=== PATIENT | male | born 1970 | race Caucasian/White ===

== ENCOUNTER 2020-04-29 11:45 | Outpatient (REF) | payer BC, SELFPAY | END 2020-04-29 11:46 | disposition home or self-care (01) | LOC: HO.LAB 11:45 | PROVIDERS: Visit Provider Internal Medicine | DX: Z20.828 Contact with and (suspected) exposure to other viral communicable diseases (principal) | CPT/HCPCS: 87635 ==

== ENCOUNTER 2020-05-28 09:09 | Outpatient (REF) | payer BC, SELFPAY ==
[2020-05-28 10:10] LABS: MANUAL DIFF FLAG NO
[2020-05-28 10:13] LABS: Basophils Percent Auto 0.1 % (0-2); Eosinophils Absolute Auto 0.1 X10*3/uL (0.0-0.4); Eosinophils Percent Auto 1.6 % (0-4); Hematocrit 44.8 % (42-52); Hemoglobin 14.3 g/dl (14.0-18.0); Imm Gran Abs Auto 0.01 X10*3/uL (0.00-0.03); Imm Gran Pct Auto 0.1 % (0.0-0.4); Lymphocytes Absolute Auto 2.8 X10*3/uL (1.2-4.9); Lymphocytes Percent Auto 34.8 % (20-40); Mean Corpuscular HGB Conc 31.9 g/dl (31.0-36.0); Mean Corpuscular Hemoglobin 29.1 pg (27.0-33.0); Mean Corpuscular Volume 91.1 fL (80-98); Monocytes Absolute Auto 0.7 X10*3/uL (0.1-1.2); Monocytes Percent Auto 8.6 % (2-11); Neutrophils Absolute Auto 4.4 X10*3/uL (2.0-8.3); Neutrophils Percent Auto 54.8 % (45-73); Platelet Count 209 X10*3/uL (160-400); Red Blood Count 4.92 X10*6/uL (4.60-5.80); Red Cell Distribution Width 12.3 % (11.0-16.0); White Blood Count 8.1 X10*3/uL (4.8-10.8)
[2020-05-28 10:39] LABS: Alanine Aminotransferase 37 U/L (0-40); Albumin Level 4.3 g/dL (3.5-5.0); Alkaline Phosphatase 65 U/L (39-117); Anion Gap 12 (12-20); Aspartate Amino Transferase 26 U/L (5-37); Bilirubin Total 0.3 mg/dL (0.0-1.0); Blood Urea Nitrogen 14 mg/dL (9-16); Calcium 8.4 mg/dL (8.4-10.2); Carbon Dioxide 28 mmol/L (22-29); Chloride 103 mmol/L (96-108); Cholesterol 220 mg/dL; Estimated Glomerular Filt Rate > 60; Glucose Random 109 mg/dL (60-115); HDL Cholesterol 62 mg/dL; LDL Cholesterol Calculated 140 mg/dl; Potassium 4.4 mmol/l (3.3-5.1); Sodium 139 mmol/L (135-145); Total Protein 7.9 g/dL (6.5-8.0); Triglycerides 93 mg/dL
[2020-05-28 11:02] LABS: Prostate Specific Antigen 0.26 ng/mL (<0.05-4.0)
[2020-05-31 12:26] LABS: Testosterone, Total 352 ng/dL (250-1100)
== END 2020-05-28 09:10 | disposition home or self-care (01) ==
LOC: HO.LAB 09:09
PROVIDERS: PCP Internal Medicine Medical Oncology; Visit Provider Internal Medicine Medical Oncology
DX: E66.9 Obesity, unspecified (principal)
CPT/HCPCS: 36415; 80053; 80061; 84153; 84403; 85025

== ENCOUNTER 2022-02-28 16:51 | Emergency (ER) | payer OTHER, BC, SELFPAY ==
--- NOTE | ~2022-02-28 | XR_ITS ---
EXAMINATION: 1. LEFT FOOT. 2. LEFT ANKLE. CLINICAL INFORMATION: Pain. Ankle pain. Foot pain. COMPARISON: None TECHNIQUE: 1. Left foot. 3 views 2. Left ankle. 3 views FINDINGS: 1. Left foot. No fracture. No dislocation. No acute osseous abnormality. There is a small plantar calcaneal spur. 2. Left ankle. Soft tissue swelling at lateral malleolus. No fracture or dislocation. Ankle mortise is congruent. XR/XR ankle LT min 3V IMPRESSION: 1. Left foot. No acute abnormality. 2. Left ankle. Soft tissue swelling at lateral malleolus. No acute osseous abnormality
--- NOTE | ~2022-02-28 | XR_ITS ---
EXAMINATION: 1. LEFT FOOT. 2. LEFT ANKLE. CLINICAL INFORMATION: Pain. Ankle pain. Foot pain. COMPARISON: None TECHNIQUE: 1. Left foot. 3 views 2. Left ankle. 3 views FINDINGS: 1. Left foot. No fracture. No dislocation. No acute osseous abnormality. There is a small plantar calcaneal spur. 2. Left ankle. Soft tissue swelling at lateral malleolus. No fracture or dislocation. Ankle mortise is congruent. XR/XR foot LT min 3V IMPRESSION: 1. Left foot. No acute abnormality. 2. Left ankle. Soft tissue swelling at lateral malleolus. No acute osseous abnormality
[2022-02-28 17:08] VITALS: BP 165/104; PULSE 72; RESP 18; TEMP 36.8; O2SAT 98; BMI 44.3
--- NOTE | 2022-02-28 17:53 | ED.EXTPRO ---
HPI - Extremity Problem General Chief complaint: Extremity Problem Stated complaint: ankle inj Time Seen by Provider: 02/28/22 17:44 Source: patient Mode of arrival: ambulatory Limitations: no limitations History of Present Illness HPI Narrative: 51-year-old male presents for evaluation for left ankle pain after twisting it while he was at work today. He is ambulatory, but states that it hurts when he walks. He does not report any other injury, denies hip and knee pain. MD Complaint: extremity pain, extremity swelling, joint swelling and joint pain Onset (ago): hour(s) (Within an hour of arrival) Pain Consistency: constant Location: left and lower extremity Severity scale (1-10): 7 Quality: aching Radiation: none Relieving factors: immobilization, elevation and rest Exacerbating factors: range of motion, weight bearing, walking and palpation Associated symptoms: denies other symptoms Related Data Allergies Allergy/AdvReac Type Severity Reaction Status Date / Time No Known Allergies Allergy Unverified 03/18/20 16:06 Review of Systems Review of Systems: Constitutional: No Fever, No Chills ENT/Mouth: No Ear Pain, No Hoarseness, No sore throat Eyes: No Eye Pain, No Swelling, No Redness, No Foreign Body Cardiovascular: No Chest Pain, No SOB Respiratory: No Cough, No Dyspnea Gastrointestinal: No Nausea, No Vomiting, No Diarrhea, No abdominal Pain Genitourinary: No Dysuria, No Hematuria Musculoskeletal: positive left ankle pain, No Myalgias, No Joint Swelling Skin: No Skin lacerations, No rash Neuro: No Weakness, No Numbness, No Paresthesias, No Loss of Consciousness, No Dizziness, No Headache Psych: No Anxiety/Panic, No Depression Heme/Lymph: no easy bruising, no Lymphadenopathy Endocrine: No Polyuria, No Polydipsia Yes all other systems are reviewed and are negative PMFSH Past Medical History Attestation statement: The following information was validated with the patient. Source: old records reviewed Social History Social History Advance Directives: No Advance Directives Information Provided: No Physical Exam Vital Signs: Vital Signs: Last Vital Signs Temp 98.2 F 02/28/22 17:08 Pulse 72 02/28/22 17:08 Resp 18 02/28/22 17:08 BP 165/104 H 02/28/22 17:08 Pulse Ox 98 02/28/22 17:08 O2 Del Method 02/28/22 17:08 BMI result Body Mass Index 44.3 Appearance: Alert. Oriented X3. No acute distress. Eyes: Pupils equal, round and reactive to light. ENT: Pharynx normal. Neck: Normal inspection. Neck supple. CVS: Normal heart rate and rhythm. Pulses normal. Respiratory: No respiratory distress. Breath sounds normal. Abdomen: Soft and nontender. Skin: Skin warm and dry. Normal skin color. Normal skin turgor. Extremities: Left medial and lateral malleolar tenderness to palpation. Full passive flexion extension internal and external rotation to left lower extremity. Brisk capillary refill and equal pulses. Neurovascularly intact. Neuro: No motor deficit. No sensory deficit. Cranial nerves 2-12 intact. Course Course Course Narrative: 51-year-old male presents for evaluation for left ankle pain and swelling after twisting it while working today. Physical exam shows bilateral malleolar tenderness without range of motion deficit. Has brisk capillary refill in equal pulses. Will order x-rays. X-rays negative for acute findings, suspicious for spine strain or sprain. Will place patient in a, have follow-up with work medicine as needed. Patient verbalized understanding of and agrees to plan of care discharge home. Verbalized understanding of signs and symptoms indicating need for emergent intervention. MDM - Extremity (Nontraumatic) MDM Narrative Medical decision making narrative: Fracture, dislocation, effusion, sprain Differential Diagnosis Differential diagnosis: Likely cellulitis Medical Records Attestation: I reviewed the patient's medical records. Imaging Data Left foot and ankle: Attestation: I personally reviewed and interpreted this imaging study as follows: Radiologist's impression: EXAMINATION: 1. LEFT FOOT. 2. LEFT ANKLE. CLINICAL INFORMATION: Pain. Ankle pain. Foot pain.? COMPARISON: None? TECHNIQUE: 1. Left foot. 3 views 2. Left ankle. 3 views? FINDINGS: 1. Left foot. No fracture. No dislocation. No acute osseous abnormality. There is a small plantar calcaneal spur. 2. Left ankle. Soft tissue swelling at lateral malleolus. No fracture or dislocation. Ankle mortise is congruent. XR/XR ankle LT min 3V IMPRESSION: ? 1. Left foot. No acute abnormality. 2. Left ankle. Soft tissue swelling at lateral malleolus. No acute osseous abnormality? Discharge Plan Discharge Clinical Impression: Ankle sprain Patient Disposition: Home, Self-Care Instructions: Ankle Sprain (ED), R.I.C.E. Treatment (ED) Additional Instructions: You were evaluated for injury sustained at work. X-rays indicate swelling to the left ankle without fracture or dislocation. Your injuries are consistent with ankle sprain. Use Michael wrap to help reduce pain and swelling. Rest ice and elevate the extremity. Alternate Tylenol 650 mg every 6 hours and Motrin 600 mg every 6 hours as needed for pain management. Write down what have you take these medications of an accidental overdose. Follow-up [facility] in 3 days if pain persists. Thank you for choosing this emergency department for evaluation. Please follow-up with primary care physician as needed. Return to the emergency department for any new, concerning, or worsening symptoms. Referrals: [facility] [Provider Group] - 3 days (Left ankle sprain) Stand Alone Forms: Work/School Release Interventions: ED Discharge Assessment Last Done: 02/28/22 19:50 Discharge Date/Time: 02/28/22 19:51
== END 2022-02-28 19:51 | disposition home or self-care (01) ==
PROVIDERS: Emergency Provider Internal Medicine; PCP Internal Medicine Medical Oncology
DX: S93.402A Sprain of unspecified ligament of left ankle, initial encounter (principal); X50.1XXA Overexertion from prolonged static or awkward postures, initial encounter; Y93.89 Activity, other specified; Y92.59 Other trade areas as the place of occurrence of the external cause; Y99.0 Civilian activity done for income or pay
CPT/HCPCS: 73610; 73630; 99283

== ENCOUNTER 2022-03-05 12:08 | Emergency (ER) | payer OTHER, BC, SELFPAY ==
[2022-03-05 13:25] VITALS: BP 168/113; PULSE 64; RESP 16; TEMP 36.1; O2SAT 97; BMI 45.0
== END 2022-03-05 15:59 | disposition left against medical advice (07) ==
PROVIDERS: Emergency Provider Emergency Medicine; PCP Internal Medicine Medical Oncology
DX: M25.572 Pain in left ankle and joints of left foot (principal)
CPT/HCPCS: 99281

== ENCOUNTER 2022-03-06 08:54 | Emergency (ER) | payer OTHER, BC, SELFPAY ==
[2022-03-06 08:58] VITALS: BP 152/112; PULSE 68; RESP 18; TEMP 36.7; O2SAT 99; BMI 45.0
--- NOTE | 2022-03-06 09:09 | ED.EXTPRO ---
HPI - Extremity Problem General Chief complaint: Extremity Problem Stated complaint: Franci inj/work related Time Seen by Provider: 03/06/22 09:04 Source: patient Mode of arrival: ambulatory Limitations: no limitations History of Present Illness HPI Narrative: patient presents emergency department for evaluation of right ankle sprain. He reports that he sustained an injury at work 1 week ago. He was evaluated in this emergency department and had a normal x-ray was advised of an ankle sprain and given an Michael bandage wrap and told to follow-up with [facility]. He states that his employer has changed the process according to [facility] his Employer would need to schedule the appointment, however there was some communication error and an appointment was never scheduled. He is requesting a return to work note for tomorrow. He has not been using the Michael bandage, he reports very minimal pain with walking, has been ambulatory with a steady gait. Feels well enough to return to work. Related Data Allergies Allergy/AdvReac Type Severity Reaction Status Date / Time No Known Allergies Allergy Unverified 03/18/20 16:06 Review of Systems Review of Systems: Constitutional: No weight loss, fever, chills, weakness or fatigue. Skin: No rash or itching. Cardiovascular: No chest pain, chest pressure or chest discomfort. No palpitations or pedal edema. Respiratory: No shortness of breath, cough or sputum production. Gastrointestinal: No anorexia, nausea, vomiting or diarrhea. No abdominal pain or blood in stool. Genitourinary: No burning micturition. No urinary frequency or incontinence. Musculoskeletal: resolving ankle pain Psychiatric: No depression or anxiety. Yes all other systems are reviewed and are negative PMFSH Past Medical History Attestation statement: The following information was validated with the patient. Source: old records reviewed Social History Social History Advance Directives: Yes Advance Directives Information Provided: Yes Advance Directives on File: No Physical Exam Vital Signs: Vital Signs: Last Vital Signs Temp 98.1 F 03/06/22 08:58 Pulse 68 03/06/22 08:58 Resp 18 03/06/22 08:58 BP 170/103 H 03/06/22 09:13 Pulse Ox 99 03/06/22 08:58 O2 Del Method 03/06/22 08:58 BMI result Body Mass Index 45.0 Appearance: Alert.?Oriented to person, place and time. No acute distress.?Normal affect. Eyes: Pupils equal, round and reactive to light.? ENT: Pharynx normal.?? Neck: Normal inspection.? Neck supple.?? CVS: Heart sounds normal. Normal heart rate and rhythm.? Pulses normal.?? Respiratory: No respiratory distress.? Lung sounds clear to auscultation bilaterally?? Abdomen: Soft and non-tender. Normoactive bowel sounds. No pulsatile mass.?? Skin: Skin warm and dry.? Normal skin color.? Extremities: No lower extremity edema. full AROM to right ankle. No swelling. No deformity. Neuro: Moves all extremities spontaneously. Sensation intact bilaterally. No motor deficits Ambulates with normal steady gait. Course Course Course Narrative: patient is a 51-year-old male with a past medical history of hypertension who presents emergency department today for re-evaluation after a recent ankle sprain that he sustained while at work. Was unable to follow-up with the [facility]. requesting a return to work note. Right ankle with full AROM, ambulatory with a steady gait, not currently using Michael bandage, has not required Tylenol or ibuprofen. Feels well enough to return to work by his account. Patient to be provided with return to work note, however he was made aware that he may still need to contact his employer as they may still require him to be re-evaluated at [facility] prior to return. additionally patient noted to be hypertensive while in the emergency department, 170/103, asymptomatic. Patient states that he stopped taking his lisinopril some time ago, because he did not like the way that it made him feel. He does endorse that he uses a lot of salt on his food. Discussed with patient potential complications from uncontrolled hypertension over time. Patient verbalized understanding. We discussed worrisome signs and symptoms that he should return back to the emergency department for. Patient states that he will contact his primary care provider tomorrow to schedule a follow-up visit regarding his hypertension, declines being placed on any new antihypertensives at this time. MDM - Extremity (Nontraumatic) Medical Records Attestation: I reviewed the patient's medical records. Discharge Plan Discharge Clinical Impression: Ankle sprain, Hypertension Patient Disposition: Home, Self-Care Instructions: Ankle Sprain (ED), Hypertension (ED) Additional Instructions: You reported that your pain has significantly improved. You have been walking around without the use of an Michael bandage. You feel comfortable returning to work. As we discussed, you may need to speak with your job as they may still require you to be evaluated at the work connection return to the emergency department with any new or worsening symptoms or concerns As we discussed your blood pressure was high while you were in the emergency department, you stated that you stopped taking your lisinopril as you did not like the way that it made you feel. Elevated blood pressure over time that is unmanaged can lead to complications including damage to the heart, kidneys, blood vessels, and Could potentially cause stroke or heart attack. You stated that you would contact your primary care provider tomorrow to arrange for a visit to address your blood pressure. If you develop persistent headaches, vision changes, dizziness, lightheadedness, neck pain, neck stiffness, chest pain, palpitations, shortness of breath, difficulty breathing you should return back to the emergency department for further evaluation. Stand Alone Forms: Work/School Release Interventions: ED Discharge Assessment Last Done: 03/06/22 09:27 Discharge Date/Time: 03/06/22 09:28
[2022-03-06 09:13] VITALS: BP 170/103
== END 2022-03-06 09:28 | disposition home or self-care (01) ==
PROVIDERS: Emergency Provider Emergency Medicine; PCP Internal Medicine Medical Oncology
DX: Z04.2 Encounter for examination and observation following work accident (principal); S93.402D Sprain of unspecified ligament of left ankle, subsequent encounter; W19.XXXD Unspecified fall, subsequent encounter; I10 Essential (primary) hypertension
CPT/HCPCS: 99282

== ENCOUNTER 2022-03-31 16:42 | Emergency (ER) | payer BC, SELFPAY ==
--- NOTE | ~2022-03-31 | CT_ITS ---
EXAMINATION: CT ABDOMEN AND PELVIS WITHOUT CONTRAST CLINICAL INFORMATION: Abdominal pain evaluate for incarcerated hernia COMPARISON: None TECHNIQUE: Multidetector volumetric imaging was performed from the superior aspect of the liver through the pubic symphysis. Sagittal and coronal reformatted images were obtained on the technologist's workstation. This CT examination was performed using dose optimization techniques as appropriate, variously including the following: *Automated exposure control *Adjustment of mA and/or kV according to patient size (this includes techniques or standardized protocols for targeted exams where dose is matched to indication/reason for exam; i.e. extremities or head) *Use of iterative reconstruction technique DLP: 1008 mGy-cm FINDINGS: LUNG BASES: The visualized lung bases are unremarkable. LIVER, GALLBLADDER, AND BILIARY TREE: The liver is normal in size, shape, and attenuation. No focal hepatic lesion or biliary ductal dilatation is present. The gallbladder is unremarkable with no evidence of radiopaque gallstones, gallbladder wall thickening, or obvious pericholecystic inflammatory changes. PANCREAS: Unremarkable. SPLEEN: Unremarkable. ADRENAL GLANDS: Unremarkable. KIDNEYS AND URETERS: The kidneys are normal in size, shape, and attenuation. No hydronephrosis, hydroureter, or calculi seen. No perinephric stranding. BLADDER: Unremarkable. GASTROINTESTINAL TRACT: The small and large bowel are unremarkable. The appendix is unremarkable. ABDOMINAL WALL: There is a fat-containing umbilical hernia. The wall defect measures 2 cm transverse and 1.1 cm AP. The hernia sac measures 2.8 cm transverse 3.6 cm AP and 3.1 cm craniocaudal. There is thickening of the wall or fascia and peritoneum surrounding the hernia. There is also prominent stranding in the surrounding subcutaneous fat as well as within the omental fat just deep to the abdominal wall at the neck of the hernia. There is no bowel extending into the hernia. LYMPH NODES: Normal. VASCULAR: Unremarkable. PELVIC VISCERA: Unremarkable. OSSEOUS STRUCTURES: Mild multilevel spondylosis lumbar sacral spine with endplate osteophytes at the L3-L4 and L4-L5 levels. CT/CT abdomen pelvis wo IV con IMPRESSION: There is a fat-containing umbilical hernia. The surrounding inflammatory change suggests that there is likely compromise of the blood supply i.e. strangulation.
[2022-03-31 16:54] VITALS: BP 163/95; PULSE 66; RESP 18; TEMP 37.2; O2SAT 97; BMI 47.1
[2022-03-31 17:03] LABS: MANUAL DIFF FLAG NO
[2022-03-31 17:04] LABS: Basophils Percent Auto 0.3 % (0-2); Eosinophils Absolute Auto 0.2 X10*3/uL (0.0-0.4); Eosinophils Percent Auto 1.8 % (0-4); Hematocrit 41.8 % (42.0-52.0); Hemoglobin 13.9 g/dl (14.0-18.0); Imm Gran Abs Auto 0.04 X10*3/uL (0.00-0.03); Imm Gran Pct Auto 0.4 % (0.0-0.4); Lymphocytes Absolute Auto 3.7 X10*3/uL (1.2-4.9); Lymphocytes Percent Auto 35.4 % (20-40); Mean Corpuscular HGB Conc 33.3 g/dl (31.0-36.0); Mean Corpuscular Hemoglobin 29.6 pg (27.0-33.0); Mean Corpuscular Volume 88.9 fL (80.0-98.0); Mean Platelet Volume 10.3 fL (9.4-12.4); Monocytes Absolute Auto 0.9 X10*3/uL (0.1-1.2); Neutrophils Absolute Auto 5.5 x10*3/uL (2.0-8.3); Neutrophils Percent Auto 53.1 % (45-73); Platelet Count 203 X10*3/uL (160-400); Red Cell Distribution Width 12.3 % (11.0-16.0); White Blood Count 10.4 X10*3/uL (4.8-10.8)
[2022-03-31 17:23] LABS: Alanine Aminotransferase 24 U/L (0-40); Albumin Level 4.3 g/dL (3.5-5.0); Alkaline Phosphatase 64 U/L (39-117); Anion Gap 16 (12-20); Aspartate Amino Transferase 17 U/L (5-37); Bilirubin Direct < 0.2 mg/dL (0.0-0.5); Bilirubin Total 0.3 mg/dL (0.0-1.0); Blood Urea Nitrogen 14 mg/dL (9-16); Calcium 9.3 mg/dL (8.4-10.2); Carbon Dioxide 28 mmol/L (22-29); Chloride 102 mmol/L (96-108); Creatinine Clr Calc Pharmacy 113.9; Estimated Glomerular Filt Rate > 60; Glucose Random 111 mg/dL (60-115); Lipase 36 U/L (8-78); Sodium 142 mmol/L (135-145); Total Protein 7.8 g/dL (6.5-8.0)
[2022-03-31 17:26] LABS: Lactic Acid 1.4 mmol/L (0.5-2.0)
[2022-03-31 17:54] VITALS: BP 155/98; PULSE 66; RESP 16; TEMP 36.9; O2SAT 98
--- NOTE | 2022-03-31 18:22 | ED_ITS ---
HPI - Abdominal Pain General Chief Complaint: Skin/Abscess/Foreign Body Stated Complaint: hernia pain redness around belly button Time Seen by Provider: 03/31/22 17:54 Source: patient Mode of arrival: ambulatory Limitations: no limitations History of Present Illness HPI narrative: Patient presents emergency department for evaluation of hernia pain. He reports presence of an umbilical hernia for many years. Typically is able to push the hernia any now. Since yesterday he has developed pain and burning at the site. The hernia appears very red and is significantly firm to touch. The skin surrounding the umbilical hernia as diffusely red, and warm to touch. Denies any fevers or chills. Denies any drainage from the umbilicus. No pus. No known insect bites. Denies constipation or diarrhea. Related Data Allergies Allergy/AdvReac Type Severity Reaction Status Date / Time No Known Allergies Allergy Unverified 03/18/20 16:06 Review of Systems Review of Systems Constitutional: No weight loss, fever, chills, weakness or fatigue. Skin: No rash or itching. Cardiovascular: No chest pain, chest pressure or chest discomfort. No palpitations or pedal edema. Respiratory: No shortness of breath, cough or sputum production. Gastrointestinal: No anorexia, nausea, vomiting or diarrhea. Positive abdominal pain. No blood in stool. Genitourinary: No burning micturition. No urinary frequency or incontinence. Musculoskeletal: No muscle pain, back pain, joint pain or stiffness. Psychiatric: No depression or anxiety. Yes all other systems are reviewed and are negative PMFSH Past Medical History Attestation statement: The following information was validated with the patient. Source: old records reviewed Social History Social History Patient Tobacco Use Status: Never used Tobacco Use of substances other than those prescribed or required for medical reasons: No Advance Directives: No Advance Directives Information Provided: Yes Physical Exam ED Vital Signs: Vital Signs - 24 hr 03/31/22 16:54 03/31/22 17:54 03/31/22 20:45 Temperature 98.9 F 98.5 F Pulse Rate 66 66 66 Respiratory Rate 18 16 18 Blood Pressure 163/95 H 155/98 H 164/115 H Pulse Oximetry 97 98 98 Oxygen Delivery Method Room Air Room Air Room Air BMI result Body Mass Index 47.1 Appearance: Alert.?Oriented to person, place and time. No acute distress.?Normal affect. Eyes: Pupils equal, round and reactive to light.? ENT: Pharynx normal.?? Neck: Normal inspection.? Neck supple.?? CVS: Heart sounds normal. Normal heart rate and rhythm.? Pulses normal.?? Respiratory: No respiratory distress.? Lung sounds clear to auscultation bilaterally?? Abdomen: Soft and non-tender. Normoactive bowel sounds. No pulsatile mass.? Umbilical hernia erythematous, warm, firm to touch. Diffuse surrounding skin is erythematous and warmth upon palpation. ? Skin: Skin warm and dry.? Normal skin color.? Normal skin turgor.?? Extremities: No lower extremity edema.? Neuro: Moves all extremities spontaneously. Sensation intact bilaterally. CN II- XII intact. No focal neuro deficits. Ambulates with normal steady gait. Course Course Course Narrative: Patient is a 51-year-old male with a past medical history of umbilical hernia. Presents emergency department for evaluation of increased pain and redness in inability to retract hernia. Physical exam concerning for incarcerated hernia, verses cellulitis. Labs ordered from triage include CBC, CMP, lactic acid, blood cultures. Will obtain CT of the abdomen and pelvis to evaluate hernia further. Reevaluation(s) Reevaluation #1: CBC reveals no leukocytosis, very mild normocytic anemia. CMP is unremarkable. Lipase normal. Lactic acid normal. CT of the abdomen resulted at this time, fat containing umbilical hernia with inflammatory changes likely consistent with strangulation. Consulted with surgery on-call Dr. Macias Time: 21:24 Reevaluation #2: Spoke with Dr. Gimenez. Advises that no bowel loops are contained within the hernia. Patient is tolerating oral intake. Moving bowels accordingly. Pain is tolerable, currently 5/10. Surgery advises that patient could be discharged home at this time with outpatient follow-up early next week. Discussed worrisome signs or symptoms the patient should return back to the emergency department for. Patient verbalized understanding. He was discharged home in stable condition. Time: 21:58 MDM - Abdominal Pain Medical Records Attestation: I reviewed the patient's medical records. Lab Data Attestation: I reviewed the patient's lab results. Result diagrams: 03/31/22 16:59 03/31/22 16:59 Labs: Lab Results 03/31/22 03/31/22 03/31/22 Range/Units 16:59 16:59 17:07 WBC 10.4 (4.8-10.8) X10*3/uL RBC 4.70 (4.60-5.80) X10*6/uL Hgb 13.9 L (14.0-18.0) g/dl Hct 41.8 L (42.0-52.0) % MCV 88.9 (80.0-98.0) fL MCH 29.6 (27.0-33.0) pg MCHC 33.3 (31.0-36.0) g/dl RDW 12.3 (11.0-16.0) % Plt Count 203 (160-400) X10*3/uL MPV 10.3 (9.4-12.4) fL Immature Gran % (Auto) 0.4 (0.0-0.4) % Neut % (Auto) 53.1 (45-73) % Lymph % (Auto) 35.4 (20-40) % [place] % (Auto) 9.0 (2-11) % Eos % (Auto) 1.8 (0-4) % Baso % (Auto) 0.3 (0-2) % Lymph # (Auto) 3.7 (1.2-4.9) X10*3/uL [place] # (Auto) 0.9 (0.1-1.2) X10*3/uL Eos # (Auto) 0.2 (0.0-0.4) X10*3/uL Baso # (Auto) 0.0 (0.0-0.2) X10*3/uL Abs Immat Gran (auto) 0.04 H (0.00-0.03) X10*3/uL Absolute Neuts (auto) 5.5 (2.0-8.3) x10*3/uL Absolute Nucleated RBC 0.000 (0.0-0.012) X10*3/uL Nucleated RBC % (auto) 0.0 (0.0-0.2) /100WBC Sodium 142 (135-145) mmol/L Potassium 4.0 (3.3-5.1) mmol/L Chloride 102 (96-108) mmol/L Carbon Dioxide 28 (22-29) mmol/L Anion Gap 16 (12-20) BUN 14 (9-16) mg/dL Creatinine 1.10 (0.5-1.4) mg/dL Estim Creat Clear Calc 113.9 Estimated GFR > 60 Random Glucose 111 (60-115) mg/dL Lactic Acid 1.4 (0.5-2.0) mmol/L Calcium 9.3 D (8.4-10.2) mg/dL Total Bilirubin 0.3 (0.0-1.0) mg/dL Direct Bilirubin < 0.2 (0.0-0.5) mg/dL AST 17 (5-37) U/L ALT 24 (0-40) U/L Alkaline Phosphatase 64 (39-117) U/L Total Protein 7.8 (6.5-8.0) g/dL Albumin 4.3 (3.5-5.0) g/dL Lipase 36 (8-78) U/L Imaging Data CT scan - abdomen: Radiologist's impression: CT/CT abdomen pelvis wo IV con IMPRESSION: There is a fat-containing umbilical hernia. The surrounding inflammatory change suggests that there is likely compromise of the blood supply i.e. strangulation. Discharge Plan Discharge Clinical Impression: Umbilical hernia Patient Disposition: Home, Self-Care Instructions: Umbilical Hernia (ED) Additional Instructions: As we discussed, you should return to emergency department with any new or worse mckayla symptoms or concerns such as severe or worsening pain, nausea, vomiting, inability to eat or drink, inability to move your bowels, change in the color of your skin surrounding the hernia. You will need to follow up with the surgeon's office early next week. Please contact their office Sunday morning to arrange for an appointment. Referrals: Kwan Gimenez MD [Physician] -
--- NOTE | 2022-03-31 18:50 | PC.NURSE ---
Pt V/S are stable, pt abd is warm to touch, bulging umbilical, and redness. Provider is aware and Ct scan has been order. Labs will be drawn. will continue to monitor.
[2022-03-31 20:45] VITALS: BP 164/115; PULSE 66; RESP 18; O2SAT 98
== END 2022-03-31 22:21 | disposition home or self-care (01) ==
PROVIDERS: Emergency Provider Emergency Medicine; PCP Internal Medicine Medical Oncology
DX: K42.9 Umbilical hernia without obstruction or gangrene (principal); R10.2 Pelvic and perineal pain; Z79.899 Other long term (current) drug therapy
CPT/HCPCS: 36415; 74176; 80053; 82248; 83605; 83690; 85025; 87040; 99284

== ENCOUNTER 2022-04-19 07:15 | Day surgery (SDC) | payer BC, SELFPAY ==
[2022-04-14 14:39] VITALS: BMI 41.6
--- NOTE | 2022-04-18 09:57 | HO.ANESPROP2 ---
Documented by User: Maricruz Ferrer NP 04/18/22 09:58 HPI - Anesthesia Eval Consult details Narrative: 51yo M for Repair of incarcerated umbilical hernia with mesh PMFSH Active Problems Active Problems: All Active Problems (Updated 04/04/22 @ 14:44 by Kwan Gimenez MD) Umbilical hernia, incarcerated (Acute) Surgical History Surgical History History of vasectomy Social History Social History Alcohol intake: current Patient Tobacco Use Status: Never used Tobacco Use of substances other than those prescribed or required for medical reasons: No Are you DNR?: No Advance Directives: No Advance Directives Information Provided: Yes Meds Allergies Allergy/AdvReac Type Severity Reaction Status Date / Time No Known Allergies Allergy Unverified 04/04/22 14:27 Home Medications Medication Instructions Recorded Confirmed Last Taken Type No Known Home Meds 04/04/22 04/04/22 Unknown History Exam Exam Date and Time: April 18, 2022 0957 Height,Weight and Vital Signs: Height 5 ft 9 in Weight 127.913 kg Pertinent Lab Results Pertinent Lab Results: Laboratory Tests 03/31/22 03/31/22 16:59 16:59 WBC 10.4 Hgb 13.9 L Hct 41.8 L Plt Count 203 Sodium 142 Potassium 4.0 Chloride 102 Carbon Dioxide 28 BUN 14 Creatinine 1.10 Assessment and Plan Assessment Anesthesia Assessment: Chart Reviewed Documented by User: Sreedhar Adames MD 04/19/22 09:39 PMFSH Family History Family history of problems with anesthesia: Unobtainable Surgical History Surgical History History of vasectomy History of Problems with Anesthesia: Unobtainable Social History Social History Alcohol intake: current Patient Tobacco Use Status: Never used Tobacco Use of substances other than those prescribed or required for medical reasons: No Are you DNR?: No Advance Directives: No Advance Directives Information Provided: Yes Meds Allergies Allergy/AdvReac Type Severity Reaction Status Date / Time No Known Allergies Allergy Unverified 04/04/22 14:27 Home Medications Medication Instructions Recorded Confirmed Last Taken Type No Known Home Meds 04/04/22 04/04/22 Unknown History Exam Airway Mallampati Class: III TM Dist: >3cm Neck ROM: Full Loose/Missing/Broken Teeth: No Heart: rrr Lungs: clear Assessment and Plan Final Anesthetic Review Family History of Problems with Anesthesia: Unobtainable History of Problems with Anesthesia: Unobtainable ASA Class: II Final Preanesthetic Review: No Changes in Pt Med Stat, Meds/Allgs Chart Reviewed, Consent Obtained/Reviewed and Anes Risks/Benef Reviewed Patient Risk: Intermediate Procedure Risk: Intermediate Anesthetic Plan Anesthetic Plan: GA Disposition: Standard PACU, Extended PACU, Inp. Admit - IMC and Inp. Admit - ICU
[2022-04-19] VITALS (8 sets, daily range): BP systolic 144–181; BP diastolic 90–104; PULSE 61–72; RESP 12–17; TEMP 36.1–36.7; O2SAT 94–98
[2022-04-19] MEDS: Lactated Ringers 1,000 ML 100 ML IVCONT (07:56)
--- NOTE | 2022-04-19 09:02 | MHC.SHP ---
Pre-Procedural Eval Section A Date of Service: 04/19/22 The patient is an INPATIENT: No Changes since office visit: Yes Patient answered all questions; No Cold of Flu in the past 2 weeks, No New Medical Problems and No Changes in Medication The History & Physical has been completed within 30 days and I have reviewed it.: Yes Section B Chief Complaint: Umbilical hernia with obstruction, without gangren Allergies: Allergies Allergy/AdvReac Type Severity Reaction Status Date / Time No Known Allergies Allergy Unverified 04/04/22 14:27 Plan Diagnosis/Plan: Unchanged I have reviewed the history and physical and performed a pertinent physical examination on my patient. No changes have occurred unless specified.
== END 2022-04-19 12:25 | disposition home or self-care (01) ==
PROVIDERS: PCP Internal Medicine Medical Oncology; Visit Provider Surgery
PROC: (CPT 49587; principal; 2022-04-19 09:10)
DX: T88.4XXA Failed or difficult intubation, initial encounter (principal); Y70.3 Surgical instruments, materials and anesthesiology devices (including sutures) associated with adverse incidents; Y92.234 Operating room of hospital as the place of occurrence of the external cause; K42.0 Umbilical hernia with obstruction, without gangrene
CPT/HCPCS: 49587; J0330; J0690; J1100; J2250; J2405; J2795; J3010

== ENCOUNTER 2022-04-21 07:39 | Outpatient (REF) | payer BC, SELFPAY ==
--- NOTE | ~2022-04-21 | XR_ITS ---
EXAMINATION: XR ankle LT min 3V CLINICAL INFORMATION: Reason for Exam M25.572 - Pain in left ankle and joints of left foot COMPARISON: Left foot/ankle radiographs 02/28/2022 TECHNIQUE: AP, lateral, and oblique views of the ankle FINDINGS: No acute fracture or dislocation. Mild osteoarthritis with degenerative spurring of the dorsal midfoot and plantar calcaneal spurring. Small tibiotalar joint effusion. XR/XR ankle LT min 3V IMPRESSION: 1. Mild osteoarthritis with degenerative spurring of the dorsal midfoot and plantar calcaneal spurring. 2. Small tibiotalar joint effusion.
== END 2022-04-21 07:40 | disposition home or self-care (01) ==
LOC: HO.HOSX 07:39
PROVIDERS: Visit Provider Physician Assistant
DX: M25.572 Pain in left ankle and joints of left foot (principal)
CPT/HCPCS: 73610

== ENCOUNTER 2025-01-16 14:05 | Emergency (ER) | payer OTHER, SELFPAY ==
--- NOTE | ~2025-01-16 | XR_ITS ---
EXAMINATION: XR LUMBOSACRAL SPINE CLINICAL INFORMATION: low back pain COMPARISON: None available. TECHNIQUE: Three views of the lumbosacral spine. FINDINGS: There 5 nonrib-bearing segments. There is moderate narrowing of the L2-3 disc space. Symphysis joint sclerosis and hypertrophy is present. XR/XR lumbar spine 2-3V IMPRESSION: L2-3 degenerative disc disease. Electronically signed by: Alexis Biggs MD 01/16/2025 03:51 PM EDT
[2025-01-16 14:12] VITALS: BP 162/101; PULSE 79; RESP 18; TEMP 36.2; O2SAT 96; BMI 39.2
--- NOTE | 2025-01-16 14:46 | ED_ITS ---
HPI - General Adult General Chief complaint: Back Pain/Injury Stated complaint: lower back pain Time Seen by Provider: 01/16/25 14:45 Source: patient Mode of arrival: ambulatory Limitations: no limitations History of Present Illness ED Provider: marty Hines HPI narrative: 54 yold male with pmh of umblical incarcerated hernia presents to the ED for back pain radiating down leg without any trauma. Patient patient states, not the car yesterday he had a little awkward movement and felt pain in his low back immediately. Patient denies any blunt trauma, abdominal pain, nausea, vomiting, flank pain, fever, chills, hematuria, dysuria, or any urinary/bowel incontinence. Patient denies any history of IV drug use or immunocompromise diseases. Related Data Previous Rx's ?Medication ?Instructions ?Recorded cyclobenzaprine 10 mg tablet 10 mg PO TID PRN muscle s pasm #21 01/16/25 tabs naproxen 500 mg tablet 500 mg PO BID PRN pain #14 t abs 01/16/25 Allergies Allergy/AdvReac Type Severity Reaction Status Date / Time No Known Allergies Allergy Verified 01/16/25 14:15 Review of Systems Review of Systems: back pain Yes all other systems are reviewed and are negative [facility] Past Medical History Surgical History (Updated 04/25/22 @ 12:42 by OSVALDO Monae) Hx of umbilical hernia repair (04/19/22) History of vasectomy Social History Social History (Updated 04/21/22 @ 10:43 by OSVALDO Dominguez) Alcohol intake: current Patient Tobacco Use Status: Never used Tobacco Advance Directives: No Advance Directives Information Provided: Yes Do you have a plan to hurt others: No Plan 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 Physical Exam ED Vital Signs: Vital Signs - 24 hr 01/16/25 14:12 Temperature 97.1 F Pulse Rate 79 Respiratory Rate 18 Blood Pressure 162/101 H Pulse Oximetry 96 Oxygen Delivery Method Room Air BMI result Body Mass Index 39.2 Const General: cooperative, healthy appearing, comfortable, no acute distress, well developed, alert and awake Orientation/consciousness: patient oriented x3 HENMT Head: Yes normal to inspection, Yes No palpable skull fracture present, Yes normocephalic and Yes atraumatic Eyes General: appearance normal, both eyes and all related structures Neck Neck: Yes normal visual inspection, Yes full ROM, Yes no lymphadenopathy, Yes no meningeal signs, Yes trachea midline, Yes supple, No anterior neck swelling and No tender Chest Chest palpation & inspection: normal inspection of the chest and normal palpation of entire chest wall Resp Effort & Inspection: normal respiratory effort and able to speak in complete sentences Auscultation: clear to auscultation bilaterally Cardio Jugular venous distension: no JVD Heart sounds: S1 normal heart sound present and S2 normal heart sound present GI Inspection: Yes normal to inspection Palpation (GI): Soft to palpation, not firm, nontender, no guarding and not rigid General: Yes no CVA tenderness Back/Spine/Pelvis Back: no CVA tenderness and back tenderness (lumbar) Skin General skin exam: no rashes or lesions noted, elasticity normal and turgor normal Neuro General: patient oriented x3, gait normal, tone normal, moves all extremities, Normal light touch and pain sensation, no meningeal signs, no focal motor deficits, CN's II-XI intact bilaterally and normal sensation to monofilament Extrem General: Yes normal to inspection, Yes full ROM and Yes capillary refill normal Psych Appearance: grossly normal, well kempt and not disheveled Medications Administered Discontinued Medications Generic Name Dose Route Start Last Admin Trade Name Freq PRN Reason Stop Dose Admin Ketorolac Tromethamine 30 mg 01/16/25 16:04 01/16/25 17:10 Ketorolac Tromethamine 30 Mg/Ml Vial IM 01/16/25 16:05 30 mg ONCE ONE Administration Medical Decision Making Medical Decision Making [facility] Narrative: 54-year-old male presents to the ED for back pain since yesterday after coming out of his truck and turned awkwardly and pus sudden pain in his back. Patient states back pain on range of motion. Patient denies any urinary/bowel incontinence, recent trauma, abdominal pain, nausea, vomiting, flank pain, fever or chills. Patient is sent for x-ray. 4:30pm: Patient's x-ray shows lumbar radiculopathy. Not suspecting cauda equinus or epidural abscess. Not suspecting osteomyelitis. Not suspecting kidney stones or pyelonephritis. Patient explained worrisome signs and informed to reutrn to the ED. Differential Diagnosis Differential Diagnoses: The differential diagnosis associated with the presentation includes (Lumbar radiculopathy back strain) Admission/Observation Consideration of admission/observation: Escalation of care including admission/observation considered Independent Interpretation I performed an independent interpretation of an: Plain X-Ray Radiology Impression Discussion of test interpretation with radiology: I have reviewed the radiologist's reading. Independent Historian Clinical information obtained from an independent historian. History obtained from or confirmed by: Other (Patient) Prescription Management I considered prescription management with: Pain Medication Discharge Plan Discharge Clinical Impression: Lumbar radiculopathy, Back strain Patient Disposition: Home, Self-Care Instructions: Low Back Strain (ED), Lumbar Radiculopathy (ED) Additional Instructions: Return to the ED for any worsening back pain, urinary/bowel incontinence, nausea, vomiting, flank pain, fever, chills, inability to walk, or any other concerning symptoms. Recommend follow up with primary care provider for re- evaluation and possible physical therapy if no improvement. Ordering Physician: Marty Hines Date of Service: 01/16/25 Procedure(s): XR lumbar spine 2-3V Accession Number(s): [id number] cc: Marty Hines; Physician,None ~ EXAMINATION: XR LUMBOSACRAL SPINE CLINICAL INFORMATION: low back pain COMPARISON: None available. TECHNIQUE: Three views of the lumbosacral spine. FINDINGS: There 5 nonrib-bearing segments. There is moderate narrowing of the L2-3 disc space. Symphysis joint sclerosis and hypertrophy is present. XR/XR lumbar spine 2-3V IMPRESSION: L2-3 degenerative disc disease. Electronically signed by: Alexis Biggs MD 01/16/2025 03:51 PM EDT Prescriptions: New naproxen 500 mg tablet 500 mg PO BID PRN (Reason: pain) Qty: 14 0RF cyclobenzaprine 10 mg tablet 10 mg PO TID PRN (Reason: muscle spasm) Qty: 21 0RF Rx Instructions: Side effects of drowsiness. Do not take at work or while driving. Stand Alone Forms: Work/School Release Interventions: ED Discharge Assessment Last Done: 01/16/25 17:12 Discharge Date/Time: 01/16/25 17:12 Print Language: Macedonian
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
[2025-01-16 17:12] VITALS: BP 162/101; PULSE 79; RESP 18; TEMP 36.2; O2SAT 96
== END 2025-01-16 17:12 | disposition home or self-care (01) ==
PROVIDERS: Emergency Provider Emergency Medicine
DX: M54.16 Radiculopathy, lumbar region (principal); M54.50 Low back pain, unspecified
CPT/HCPCS: 72100; 96372; 99283; 99284; J1885

== ENCOUNTER → 2025-01-16 14:43 | Outpatient (BNV) | payer OTHER, SELFPAY | PROVIDERS: Emergency Provider Emergency Medicine; Visit Provider Radiology Diagnostic Radiology | DX: M51.362 Other intervertebral disc degeneration, lumbar region with discogenic back pain and lower extremity pain (principal) | CPT/HCPCS: 72100 ==

== ENCOUNTER 2025-05-24 14:17 | Emergency (ER) | payer OTHER, SELFPAY ==
--- NOTE | ~2025-05-24 | XR_ITS ---
CLINICAL HISTORY: pain, injury 3 view right ankle Comparison: None provided Findings: Bones intact. No dislocations. Small cortical osteophyte along the posterior aspect of the medial epicondyle could reflect sequelae of prior injury. No ankle effusion. No radiopaque foreign body. IMPRESSION: No acute right ankle findings. Mild degenerative changes along the medial epicondyle could reflect sequelae of prior injury. This document has been electronically signed by: Arnoldo Alegria MD on 05/24/2025 16:19:17
--- NOTE | ~2025-05-24 | XR_ITS ---
CLINICAL HISTORY: pain, injury 3 view right foot Comparison: None provided Findings: No fractures or dislocations. Mild degenerative changes are present with calcaneal plantar and talar dome spurring in addition to a small osteophyte along the posterior aspect of the medial epicondyle which could reflect prior injury. No ankle effusion. No radiopaque foreign body. IMPRESSION: No acute right foot findings. Mild degenerative changes, as above. This document has been electronically signed by: Arnoldo Alegria MD on 05/24/2025 16:21:09
[2025-05-24 14:55] VITALS: BP 190/118; PULSE 89; RESP 16; TEMP 36.8; O2SAT 100; BMI 35.9
--- NOTE | 2025-05-24 14:57 | ED_ITS ---
HPI - General Adult General Chief complaint: Extremity Injury, Lower Stated complaint: Work inj, r ankle ing Time Seen by Provider: 05/24/25 16:37 Source: patient Mode of arrival: wheelchair Limitations: no limitations History of Present Illness ED Provider: Dottie Sheppard PA-C HPI narrative: Patient is a 54 year old assigned male at with no reported medical history presenting to the emergency department today with right ankle pain. Patient states that he was at work and his twisted his right ankle. Patient states that it now hurts to bear weight on the right ankle. Patient denies any loss of consciousness or head strike with the incident.. Patient denies any other complaints at this time. Pain Consistency: constant Relieving factors: none Exacerbating factors: movement Associated symptoms: denies other symptoms Treatments prior to arrival: none Related Data Previous Rx's ?Medication ?Instructions ?Recorded cyclobenzaprine 10 mg tablet 10 mg PO TID PRN muscle s pasm #21 01/16/25 tabs naproxen 500 mg tablet 500 mg PO BID PRN pain #14 t abs 01/16/25 Allergies Allergy/AdvReac Type Severity Reaction Status Date / Time No Known Allergies Allergy Verified 05/24/25 14:55 Review of Systems Constitutional: Constitutional: Reports as per HPI Eyes: Eyes: Reports as per HPI ENT: Reports as per HPI Cardiovascular: Cardiovascular: Reports as per HPI Respiratory: Respiratory: Reports as per HPI Gastrointestinal: Gastrointestinal: Reports as per HPI Genitourinary: Genitourinary: Reports as per HPI Musculoskeletal: Musculoskeletal: Reports as per HPI Integumentary/Breasts: Skin/Breast: Reports as per HPI Neurologic: Reports as per HPI Psychiatric: Psychiatric: Reports as per HPI Endocrine: Endocrine: Reports as per HPI Hematologic/Lymphatic: Hematologic/Lymphatic: Reports as per HPI Allergic/Immunologic: Allergic/Immunologic: Reports as per HPI PMFSH Past Medical History Attestation statement: The following information was validated with the patient. 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 Physical Exam ED Vital Signs: Vital Signs - 24 hr 05/24/25 14:55 05/24/25 17:45 Temperature 98.2 F 98.2 F Pulse Rate 89 89 Respiratory Rate 16 16 Blood Pressure 190/118 H 190/118 H Pulse Oximetry 100 100 Oxygen Delivery Method Room Air Room Air BMI result Body Mass Index 35.9 Const General: cooperative, no acute distress, alert and awake Nutritional Appearance: well nourished Orientation/consciousness: patient oriented x3 HENMT Head: Yes normal to inspection and Yes atraumatic Ears: hearing grossly normal bilaterally and external ears normal General nose exam: Normal external nose present, no nasal discharge noted and no epistaxis Face and sinus: Yes normal facial exam, No abrasion and No laceration Mouth: Normal oral and palatal mucosa present, no drooling and no muffled voice Eyes General: appearance normal, both eyes and all related structures Periorbital: periorbital findings normal Eyelids: Yes eyelids normal Conjunctivae: conjunctivae normal Pupils: Equal, round and reactive pupils present EOM: EOMs intact bilaterally Neck Neck: Yes normal visual inspection and Yes full ROM Resp Effort & Inspection: normal respiratory effort and able to speak in complete sentences Neuro General: patient oriented x3, moves all extremities and CN's II-XI intact bilaterally Cranial nerves: Yes Equal, round and reactive pupils present Cognition (Neuro): normal cognition Extrem Other: Large area of dry skin present to the medial aspect of the right ankle pain with right ankle ROM howeve - present, intact, and normal ROM present General: Yes capillary refill normal Psych Appearance: grossly normal Mental Status: mental status grossly normal Affect: normal affect Attitude: cooperative Thought process: Normal thought process present Thought content: Normal thought content present Insight: Good insight present (Psych) Course Course Course Narrative: Rapid medical examination performed in triage by Dottie Sheppard PA-C: Patient is a 54 year old assigned male at presenting to the emergency department with right foot and ankle pain after twisting it at work. 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 Imaging ordered. Patient placed back in the waiting room pending room availability and results. Procedures Orthopedic Splinting/Casting R ankle sprain: Side: right Lower Extremity Injury Location: ankle Lower Extremity Immobilizer: boot orthosis Other Orthopedic Equipment: crutches Medical Decision Making Medical Decision Making [facility] Narrative: Patient is a 54 year old assigned male at with no reported medical history presenting to the emergency department today with right ankle pain. Patient's physical exam was as noted in the physical exam portion of this note. Patient's right foot and right ankle x-rays showed no acute process. Patient's clinical presentation is most consistent with a right ankle sprain / strain. I explained my physical exam findings as well as all test results to the patient. I answered all questions asked by the patient. Patient's right ankle was placed in a walking boot, without incident. Patient's ROM of the right lower extremity was intact and present prior to and after boot placement. Patient was given crutches with crutch instructions. Patient was able to demonstrate appropriate use of the crutches while in the department. I stressed the importance of the patient taking his medication as directed ( either prescribed or as the over the counter packaging recommends). I stressed the importance of the patient following up with his primary care provider, the podiatry team, and given this took place at work - with [facility]. I stressed the importance of the patient returning to the emergency department immediately if his symptoms were to worsen or if he were to develop any numbness, tingling, dizziness, shortness of breath, difficulty breathing, chest pain, blurry vision, loss of vision, nausea, vomiting, abdominal pain, fever, chills, back pain, or any other complaints. Patient verbalized agreement and understanding with this treatment plan and discharge. Differential Diagnosis Differential Diagnoses: The differential diagnosis associated with the presentation includes Ankle fracture Foot fracture Ankle sprain Ankle strain Admission/Observation Consideration of admission/observation: Escalation of care including admission/observation considered Patient would have been admitted to the hospital had his work up had any findings where hospital admission was appropriate and his clinical presentation warranted hospital admission. Independent Interpretation I performed an independent interpretation of an: Plain X-Ray (right foot + right ankle) Interpretation: My interpretation is in agreement with the radiologist's impression of these i maging studies as written below. CLINICAL HISTORY: pain, injury 3 view right foot Comparison: None provided Findings: No fractures or dislocations. Mild degenerative changes are present with calcaneal plantar and talar dome spurring in addition to a small osteophyte along the posterior aspect of the medial epicondyle which could reflect prior injury. No ankle effusion. No radiopaque foreign body. IMPRESSION: No acute right foot findings. Mild degenerative changes, as above. This document has been electronically signed by: Arnoldo Alegria MD on 05/24/2025 16:21:09 Dictated By: Arnoldo Alegria MD Signed By: Electronically signed by Arnoldo Alegria MD 05/24/25 [id number] CLINICAL HISTORY: pain, injury 3 view right ankle Comparison: None provided Findings: Bones intact. No dislocations. Small cortical osteophyte along the posterior aspect of the medial epicondyle could reflect sequelae of prior injury. No ankle effusion. No radiopaque foreign body. IMPRESSION: No acute right ankle findings. Mild degenerative changes along the medial epicondyle could reflect sequelae of prior injury. This document has been electronically signed by: Arnoldo Alegria MD on 16:19:17 Dictated By: Arnoldo Alegria MD Signed By: Electronically signed by Arnoldo Alegria MD 05/24/25 2646 Radiology Impression Discussion of test interpretation with radiology: I have reviewed the radiologist's reading. Discharge Plan Discharge Clinical Impression: Ankle sprain Qualifiers: Encounter type: initial encounter Involved ligament of ankle: unspecified ligament Laterality: right Qualified Code(s): S93.401A - Sprain of unspecified ligament of right ankle, initial encounter Patient Disposition: Home, Self-Care Instructions: Ankle Sprain (DC), Crutch Instructions (ED), Walking Boot (ED) Additional Instructions: Your right foot and ankle x-rays were read as negative for any acute fracture/ break. I am suspicious that you have a right ankle sprain. You have been placed in a walking boot and given crutches. This is for your comfort. You may use the extremity as you tolerate. Follow up with the podiatry team. Take tylenol + ibuprofen for pain. Given this was a work place injury - you should follow up with [facility]. IF you are prescribed home medications and/or you are taking over the counter medications at home - it is very important you continue to do so as prescribed / directed unless told otherwise by a healthcare provider. Follow up with your primary care provider. Do your best to stay well hydrated and rest. Return to the emergency department immediately if your symptoms worsen or if you develop any numbness, tingling, dizziness, shortness of breath, difficulty breathing, chest pain, blurry vision, loss of vision, nausea, vomiting, abdominal pain, fever, chills, back pain, or any other complaints. If you do not have a primary care provider - call any of the below numbers to establish and follow up with a primary care provider. [facility] Primary Care ([place]) [phone] [place] [address], [address] [facility] Primary Care ([address] [place]) [phone] [place] [address], [address] [facility], [address] [facility] Primary Care ([address] [place]) [phone] [place] [address], [address] [facility], [address] [facility] Primary Care ([place]) [phone] [place] [address] [address] [facility], [address] [facility] Family Medicine [phone] [place] [address], [address] Please see the information below about our Patient Portal. If you are not yet enrolled in the [facility] Patient Portal, you will receive an enrollment email invitation following your visit to any [facility] setting. You may also self-enroll in the Patient Portal by visiting our website: [email or web address] The following information is required to access the Patient Portal: - Your [facility] Medical Record Number - Your personal home email address (must match what is in your electronic medical record, Registration staff can assist with this) - Name - Date of Capabilities of the Patient Portal: - Message some providers - View upcoming appointments - Access your health summary, medical history, and visit history - View current conditions and allergies - View procedure and lab results - View your medications, including guidelines, side effects, and precautions - Complete pre-appointment questionnaires requested by your provider - Ready summary reports of your office visits and procedures To access the Patient Portal Mobile Vitaliy, follow these directions: - Search [employer] in the Vitaliy Store or Sportistic Store - Download the Vitaliy - Search for [facility] - Enter your login/password Prescriptions: No Action naproxen 500 mg tablet 500 mg PO BID PRN (Reason: pain) Qty: 14 0RF cyclobenzaprine 10 mg tablet 10 mg PO TID PRN (Reason: muscle spasm) Qty: 21 0RF Rx Instructions: Side effects of drowsiness. Do not take at work or while driving. Referrals: [facility] Podiatry [Provider Group, Podiatry] Referral Note: Call to establish and follow up with the podiatry group from your right ankle sprain / strain. [facility] [Provider Group] Referral Note: Given this was a work place incident, you should follow up with [facility]. Stand Alone Forms: Work/School Release Interventions: ED Discharge Assessment Last Done: 05/24/25 17:45 Discharge Date/Time: 05/24/25 17:45 Print Language: Czech
--- OUTSIDE RECORDS SUMMARY | 2025-05-24 17:01 | XMS_ITS | Patient Health Record ---
Author Organization Ketan Velazquez III, MD Address [address] [address] Care Team Providers Care Hired Hand Name Role Phone Dr. Ketan Velazquez III Primary Care Provider [phone] Allergies No Known Allergies Reason For Referral [...] Problem Status W/U Status Risk Notes Problem 133755766 Mixed hyperlipidemia (E78.2) Active confirmed A fasting lipid profile will be part of a complete database I have ordered. Problem 42150840 Essential hypertension (I10) Active confirmed His blood pressure while taking 10 mg of lisinopril daily, was 134/90. He will return in 3 or 4 weeks to check it again on this dose. I recommended aggressive weight loss sodium restriction in the meantime. Problem [id number] Umbilical hernia without obstruction and without gangrene (K42.9) Active confirmed The umbilical hernia is very small and he is asymptomatic. It does not need to be repaired, but he would like to have it fixed. I have referred him for an opinion. Problem [id number] Rash (R21) Active confirmed H e will use ketoconazole on the rash, 3 times a day for several weeks. He will call me after 21 days if the rash has not improved. Problem [id number] Morbid obesity (E66.01) Active confirmed His weight is unchanged. He continues to be uncertain if he wants a referral to the weight loss clinic. We reviewed his weight loss strategy. We formulated a plan to lose weight at a rate of one half a pound per week through a diet low in calories, fat, and sodium. Problem [id number] Diminished libid o (R68.82) Active confirmed His testosterone level is in the normal range. The decreased libido has improved, but he'll ask self-confidcatrachita e. He was given a prescription for tadalafil to help him regain his consonance in his ability to have erection. He will take the medication one hour before intercourse. He will report on his progress in this matter. Problem [id number] Closed fracture of left upper extremity, sequela (S42.302S) Active confirmed Plan Of Treatment No Information Insurance Providers Payer Name Payer Address Payer Phone Subscriber Number Group Number Insured Name Patient Relationship to Insured Coverage Start Date Coverage End Date [facility] [address] [place], [place] [id number] [place] Self - patient is the insured Medical [...] 2022 Surgical History Surgery Date(Month/Year) Vasectomy, holy [facility] Dr. Marimar escobar losing 2003 fracture of left upper and lower arm dental extractions Hernia surgery Dr. Gimenez 04/19/2022
[2025-05-24 17:45] VITALS: BP 190/118; PULSE 89; RESP 16; TEMP 36.8; O2SAT 100
== END 2025-05-24 17:45 | disposition home or self-care (01) ==
PROVIDERS: Emergency Provider Emergency Medicine
DX: S93.401A Sprain of unspecified ligament of right ankle, initial encounter (principal); M25.571 Pain in right ankle and joints of right foot; X50.1XXA Overexertion from prolonged static or awkward postures, initial encounter; X50.9XXA Other and unspecified overexertion or strenuous movements or postures, initial encounter; Y93.01 Activity, walking, marching and hiking; Y99.0 Civilian activity done for income or pay
CPT/HCPCS: 73610; 73630; 99283

== ENCOUNTER → 2025-05-24 14:58 | Outpatient (BNV) | payer OTHER, SELFPAY | PROVIDERS: Emergency Provider Emergency Medicine; Visit Provider Radiology Vascular & Interventional Radiology | DX: S99.911A Unspecified injury of right ankle, initial encounter (principal); S99.921A Unspecified injury of right foot, initial encounter; M19.071 Primary osteoarthritis, right ankle and foot | CPT/HCPCS: 73610; 73630 ==

== ENCOUNTER 2025-06-03 13:35 | Outpatient (AMB) | payer OTHER, SELFPAY ==
[2025-06-03 14:10] VITALS: BMI 44.3
--- NOTE | 2025-06-03 14:10 | MHC.OFFVIS ---
Vital Signs 06/03/25 14:10 Height 5 ft 9 in Weight 300 lb BMI 44.3 Intake Visit Reasons: twisted his right ankle/ED referral WC Intake Note: Sanchez is a 54 year old male who presents today as a new patient for an evaluation of his right ankle injury. 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 Injury occurred on 05/24/25 here he was provided with a CAM boot and crutches. Patient has history of previous injury to his right ankle due to playing sports. Foot and ankle X-ray is all set in patients chart. Allergies No Known Allergies Allergy (Verified 05/24/25 14:55) HPI Comments Details: The patient is a 54-year-old individual with a past medical history as seen below presenting for evaluation of a right ankle injury. The patient sustained the injury on May 24 after slipping at work, which caused the foot and ankle to twist. The patient reports right ankle swelling and pain upon weight-bearing, rated an 8/10. Patient states the pain has made it difficult to ambulate and he has been resting in bed for about a week. X-rays of the foot and ankle were obtained in the ED on May 24 which were negative for fracture. Patient states he went to a walk-in clinic on May 25 in which a fibular fracture was detected. The patient denies any numbness or tingling in the extremity. The patient has no known allergies to food or medication. Patient was accompanied by his and a worker's comp liaison. 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 - Neurological: Denies numbness or tingling in the affected extremity. All systems reviewed & are unremarkable except as noted in HPI and below Physical Exam Vital Signs: BMI result Body Mass Index 44.3 Extrem Other: Right lower extremity focused physical exam: Derm: No open lesions abrasions or wounds noted. No ecchymosis, erythema or discoloration noted. Skin supple and turgor within normal limits. No hyperkeratotic and macerated areas noted. No clinical signs of infection noted. Vascular: DP/PT pulses palpable. Capillary refill time less than 3 seconds. Temperature gradient warm to warm. Pedal hair present. Edema noted. No varicosities noted. Neuro: Protective sensation is grossly intact. MSK: Pain on palpation along the lateral aspect of the leg in the area of the fibula. Range of motion of the ankle reduced due to guarding from pain. MMT 4/5. No pain upon palpation to the medial aspect of the ankle and leg. No crepitus or fluctuance noted. Antalgic gait noted with the use of crutches. Office Procedures AMB Podiatry Dressing Details of Procedure: Applied a posterior splint to the right lower extremity. 02695 - Short leg splint Procedure code (CPT) selection complete Results Reviewed Results Reviewed: Podiatry read of Right tib-fib x-rays, brought by patient from walk-in clinic (05/25/2025): Spiral mid shaft fibular fracture with comminution noted. Avulsion fracture noted to the distal tip of the medial malleolus. Calcaneal spur noted. Right ankle x-rays (05/24/2025): Findings: Bones intact. No dislocations. Small cortical osteophyte along the posterior aspect of the medial epicondyle could reflect sequelae of prior injury. No ankle effusion. No radiopaque foreign body. IMPRESSION: No acute right ankle findings. Mild degenerative changes along the medial epicondyle could reflect sequelae of prior injury. Right foot x-rays (05/24/2025): Findings: No fractures or dislocations. Mild degenerative changes are present with calcaneal plantar and talar dome spurring in addition to a small osteophyte along the posterior aspect of the medial epicondyle which could reflect prior injury. No ankle effusion. No radiopaque foreign body. IMPRESSION: No acute right foot findings. Mild degenerative changes, as above. Assessment & Plan Assessment & Plan (1) Right ankle sprain: Code(s): S93.401A - Sprain of unspecified ligament of right ankle, initial encounter Category: Medical (2) Right fibular fracture: Code(s): S82.401A - Unspecified fracture of shaft of right fibula, initial encounter for closed fracture Category: Medical (3) Right ankle injury: Code(s): S99.911A - Unspecified injury of right ankle, initial encounter Category: Medical (4) Right ankle pain: Code(s): M25.571 - Pain in right ankle and joints of right foot Category: Medical Plan Patient was informed and verbally consented to the use of an ambient scribe for clinic note documentation during this visit. I reviewed the patient's X-rays, which demonstrated a comminuted spiral fracture of the fibula and a medial malleolus avulsion fracture. I explained that due to the nature of the fracture further imaging is necessary. I ordered a STAT CT scan to better define the fracture pattern and confirm if treatment will be conservative or surgical. I counseled the patient on the importance of remaining rhn-kbatvy-msmaanf and applying a posterior splint for immobilization. We also discussed pain management with meloxicam and the need to monitor for fracture blisters. - A STAT CT scan of the right ankle has been ordered to further evaluate the comminuted fibular fracture and determine the need for surgery. - Conservative versus surgical intervention pending CT scan results. - A posterior splint was applied to the right lower extremity for immobilization. - The patient is to remain strictly uzy-udfccp-uunuugy on the right leg with the use of an assistive device. - Prescribed a knee scooter. - Patient is to keep the splint clean dry and intact. - Meloxicam was prescribed for pain and inflammation. - The patient was advised to use Tylenol for breakthrough pain. - Continue rice protocol. - A work note was provided. RTC in 1 week. Orders: Orders CT ankle RT wo IV con 06/03/25 M25.571 - Pain in right ankle and joints of right foot, S82.401A - Unspecified fracture of shaft of right fibula, initial encounter for closed fracture, S93.401A - Sprain of unspecified ligament of right ankle, initial encounter, S99.911A - Unspecified injury of right ankle, initial encounter AMB Podiatry Dressing 06/03/25 M25.571 - Pain in right ankle and joints of right foot, S82.401A - Unspecified fracture of shaft of right fibula, initial encounter for closed fracture, S93.401A - Sprain of unspecified ligament of right ankle, initial encounter, S99.911A - Unspecified injury of right ankle, initial encounter Medications: New meloxicam 15 mg PO DAILY 30 tabs 0RF M25.571 - Pain in right ankle and joints of right foot, S82.401A - Unspecified fracture of shaft of right fibula, initial encounter for closed fracture, S93.401A - Sprain of unspecified ligament of right ankle, initial encounter, S99.911A - Unspecified injury of right ankle, initial encounter [Knee scooter] As directed 1 ea 0RF M25.571 - Pain in right ankle and joints of right foot, S82.401A - Unspecified fracture of shaft of right fibula, initial encounter for closed fracture, S93.401A - Sprain of unspecified ligament of right ankle, initial encounter, S99.911A - Unspecified injury of right ankle, initial encounter Coding Level of Care Code New Pt Level 4 (19792) Diagnoses Right ankle sprain S93.401A Right fibular fracture S82.401A Right ankle injury S99.911A Right ankle pain M25.571 CPT Codes Podiatry Dressing - CPT: 28214 - Short leg splint ([id number]) Time Spent (min) 50
== END 2025-06-03 14:48 | disposition home or self-care (01) ==
PROVIDERS: Visit Provider Student in an Organized Health Care Education/Training Program
DX: S93.401A Sprain of unspecified ligament of right ankle, initial encounter (principal); S82.401A Unspecified fracture of shaft of right fibula, initial encounter for closed fracture
CPT/HCPCS: 29515; 99204

== ENCOUNTER → 2025-06-03 13:35 | Outpatient (BNVA) | payer OTHER, SELFPAY | PROVIDERS: Visit Provider Student in an Organized Health Care Education/Training Program | DX: S82.401A Unspecified fracture of shaft of right fibula, initial encounter for closed fracture (principal); S93.401A Sprain of unspecified ligament of right ankle, initial encounter; W01.0XXA Fall on same level from slipping, tripping and stumbling without subsequent striking against object, initial encounter; Y93.9 Activity, unspecified; Y92.009 Unspecified place in unspecified non-institutional (private) residence as the place of occurrence of the external cause; Y99.0 Civilian activity done for income or pay | CPT/HCPCS: 29515; 99202 ==

== ENCOUNTER 2025-06-11 09:43 | Outpatient (REF) | payer OTHER, SELFPAY ==
--- NOTE | ~2025-06-11 | CT_ITS ---
CT ANKLE RIGHT WITHOUT IV CONTRAST. HISTORY: Fracture proximal right fibula. Evaluate distal right fibula and ankle. COMPARISON: Ankle radiographs and foot radiographs 05/24/2025. TECHNIQUE: Spiral CT imaging of the right ankle performed in axial plane without contrast. Multiplanar reformatted images were constructed from the axial data set. FINDINGS: BONY STRUCTURES: No definite widening of the syndesmosis is evident although there is early calcification forming in the interosseous membrane/ligament between the distal fibula and tibial metadiaphyses. (Series 4, images 82-138). This likely indicates injury/tearing of the interosseous ligament with developing myositis ossificans. There are small partially corticated osseous fragments in the anterior fibulotalar. Joint space, suggestive of small avulsion fractures (series 8, images 33-36). Cannot exclude injury to the anterior talofibular ligament. In addition, there are tiny bony fragments abutting the medial malleolus in the region of the deltoid ligament as well (series 8, image 34; series 8 images 39 and 45). Findings suggest subacute avulsion fractures with possible deltoid ligament injury. The ankle mortise is grossly intact. The talar dome is intact. There is a bone island in the medial talus. The anterior process is intact. The subtalar joints are intact. Calcaneus is intact. There are small dorsal and small to moderate plantar spurs. There is minimal osteoarthrosis of the tibiotalar joint with tiny anterior osteophytes present. SOFT TISSUES: Diffuse subcutaneous edema surrounding the ankle and extending into the dorsum of the foot is noted. There is no hematoma or walled off/organized fluid collection. Grossly no large tendinous retraction is seen. CT/CT ankle RT wo IV con IMPRESSION: 1. Several tiny subacute avulsion fractures seen abutting the tip of the lateral malleolus in the anterior tibiotalar joint, suggesting possible injury to the anterior talofibular ligament. 2. Several tiny subacute avulsion fractures seen abutting the tip of the medial malleolus, suggesting injury to the deltoid ligament. 3. Early calcification of the distal interosseous ligament/membrane as described, likely sequela of tearing and developing myositis ossificans. 4. No definite widening of the syndesmosis although syndesmotic ligamentous injury is not excluded. Grossly the mortise appears preserved. 5. Diffuse subcutaneous edema surrounding the ankle and extending into the dorsum of the foot. 6. The above findings would be much better evaluated with MRI. Electronically signed by: Gumaro Benedict MD 06/11/2025 11:57 AM STEFANI RICHARDSON
== END 2025-06-11 09:44 | disposition home or self-care (01) ==
LOC: HO.CT 09:43
PROVIDERS: Visit Provider Student in an Organized Health Care Education/Training Program
DX: S93.401A Sprain of unspecified ligament of right ankle, initial encounter (principal); S82.401A Unspecified fracture of shaft of right fibula, initial encounter for closed fracture
CPT/HCPCS: 73700

== ENCOUNTER → 2025-06-11 09:50 | Outpatient (BNV) | payer OTHER, SELFPAY | PROVIDERS: Visit Provider Radiology Diagnostic Radiology | DX: S82.402A Unspecified fracture of shaft of left fibula, initial encounter for closed fracture (principal) | CPT/HCPCS: 73700 ==

== ENCOUNTER 2025-06-30 11:08 | Outpatient (AMB) | payer OTHER, SELFPAY ==
--- NOTE | 2025-06-30 11:31 | MHC.OFFVIS ---
Vital Signs 06/30/25 11:38 Height 5 ft 9 in Weight 300 lb BMI 44.3 Intake Visit Reasons: F/U Rt Fibular FX Intake Note: Sanchez is a 54-year-old male who presents today for a follow up on his right ankle injury. The patient sustained the injury on May 24 after slipping at work. At his last visit a STAT CT scan was ordered and results is all set in chart. He was prescribed a knee scooter, meloxicam and was advised to take Tylenol prn for pain. A posterior splint was applied to the right lower extremity and was advised to remain non weight bearing. Patient reports he has seen improvement since his last visit and the meloxicam medication has been helping manage his pain symptoms however he experiences a slight discomfort to the lateral aspect of the ankle. Allergies No Known Allergies Allergy (Verified 06/30/25 11:38) HPI Comments Details: The patient is a 54 year old male presenting for a follow-up and surgical consultation regarding an right ankle fracture. He reports ongoing discomfort and swelling along the right fibula. Patient was seen with the posterior splint clean dry and intact. Patient has been nonweightbearing to the right lower extremity with the use of an assistive device. Patient obtained his CT scan. Patient was accompanied by his and worker's comp elevator examiner and adjuster. He denies any new pedal injuries. He denies any other pedal concerns. 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 All systems reviewed & are unremarkable except as noted in HPI and below Physical Exam Vital Signs: BMI result Body Mass Index 44.3 Extrem Other: Right lower extremity focused physical exam: Derm: No open lesions abrasions or wounds noted. No fracture blisters noted. No ecchymosis, erythema or discoloration noted. Skin supple and turgor within normal limits. No hyperkeratotic and macerated areas noted. No clinical signs of infection noted. Vascular: DP/PT pulses palpable. Capillary refill time less than 3 seconds. Temperature gradient warm to warm. Pedal hair present. Edema noted. No varicosities noted. Neuro: Protective sensation is grossly intact. MSK: Pain on palpation along the lateral aspect of the leg in the area of the fibular shaft. Range of motion of the ankle reduced due to guarding from pain. MMT 4/5. No pain upon palpation to the medial aspect of the ankle and leg. No crepitus or fluctuance noted. Antalgic gait noted with the use of a knee scooter. Office Procedures AMB Podiatry Dressing Details of Procedure: Applied a posterior splint to the right lower extremity. 79636 - Short leg splint Procedure code (CPT) selection complete Results Reviewed Results Reviewed: Podiatry read of right ankle CT (06/11/25): Avulsion fractures noted to the distal aspect of the medial and lateral malleolus. Plantar and posterior calcaneal spur. Ossicle to medial aspect of the talus noted. Osteophyte formation noted. Right ankle CT (06/11/25): FINDINGS: BONY STRUCTURES: No definite widening of the syndesmosis is evident although there is early calcification forming in the interosseous membrane/ligament between the distal fibula and tibial metadiaphyses. (Series 4, images 82-138). This likely indicates injury/tearing of the interosseous ligament with developing myositis ossificans. There are small partially corticated osseous fragments in the anterior fibulotalar. Joint space, suggestive of small avulsion fractures (series 8, images 33-36). Cannot exclude injury to the anterior talofibular ligament. In addition, there are tiny bony fragments abutting the medial malleolus in the region of the deltoid ligament as well (series 8, image 34; series 8 images 39 and 45). Findings suggest subacute avulsion fractures with possible deltoid ligament injury. The ankle mortise is grossly intact. The talar dome is intact. There is a bone island in the medial talus. The anterior process is intact. The subtalar joints are intact. Calcaneus is intact. There are small dorsal and small to moderate plantar spurs. There is minimal osteoarthrosis of the tibiotalar joint with tiny anterior osteophytes present. SOFT TISSUES: Diffuse subcutaneous edema surrounding the ankle and extending into the dorsum of the foot is noted. There is no hematoma or walled off/organized fluid collection. Grossly no large tendinous retraction is seen. IMPRESSION: 1. Several tiny subacute avulsion fractures seen abutting the tip of the lateral malleolus in the anterior tibiotalar joint, suggesting possible injury to the anterior talofibular ligament. 2. Several tiny subacute avulsion fractures seen abutting the tip of the medial malleolus, suggesting injury to the deltoid ligament. 3. Early calcification of the distal interosseous ligament/membrane as described, likely sequela of tearing and developing myositis ossificans. 4. No definite widening of the syndesmosis although syndesmotic ligamentous injury is not excluded. Grossly the mortise appears preserved. 5. Diffuse subcutaneous edema surrounding the ankle and extending into the dorsum of the foot. 6. The above findings would be much better evaluated with MRI. Podiatry read of Right tib-fib x-rays, brought by patient from walk-in clinic (05/25/2025): Spiral mid shaft fibular fracture with comminution noted. Avulsion fracture noted to the distal tip of the medial malleolus. Calcaneal spur noted. Right ankle x-rays (05/24/2025): Findings: Bones intact. No dislocations. Small cortical osteophyte along the posterior aspect of the medial epicondyle could reflect sequelae of prior injury. No ankle effusion. No radiopaque foreign body. IMPRESSION: No acute right ankle findings. Mild degenerative changes along the medial epicondyle could reflect sequelae of prior injury. Right foot x-rays (05/24/2025): Findings: No fractures or dislocations. Mild degenerative changes are present with calcaneal plantar and talar dome spurring in addition to a small osteophyte along the posterior aspect of the medial epicondyle which could reflect prior injury. No ankle effusion. No radiopaque foreign body. IMPRESSION: No acute right foot findings. Mild degenerative changes, as above. Assessment & Plan Assessment & Plan (1) Right ankle sprain: Code(s): S93.401A - Sprain of unspecified ligament of right ankle, initial encounter Category: Medical (2) Right fibular fracture: Code(s): S82.401A - Unspecified fracture of shaft of right fibula, initial encounter for closed fracture Category: Medical (3) Right ankle injury: Code(s): S99.911A - Unspecified injury of right ankle, initial encounter Category: Medical (4) Right ankle pain: Code(s): M25.571 - Pain in right ankle and joints of right foot Category: Medical Plan Patient was informed and verbally consented to the use of an ambient scribe for clinic note documentation during this visit. I explained to the patient that surgery is the recommended at this time for treatment of his right ankle fracture in associated injuries. I reviewed his CT scan findings, highlighting the spiral nature of the fracture, its poor alignment, and the presence of small avulsion fractures indicating significant ligament damage. I emphasized that due to shortening of the fibula and displacement, surgical intervention is indicated at this time. We discussed the surgical plan and post-operative protocol. - Applied a posterior splint to the RLE. - Patient is to keep the splint clean, dry, and intact. - Surgical intervention with open reduction and internal fixation is recommended for the displaced spiral fibular fracture with syndesmotic repair and possible ankle arthroscopy with extensive debridement. - Surgical intervention planned for 07/17/24. - The patient will have a pre-operative appointment before the surgery to ensure all preparations are complete. - Post-operatively, the patient will remain non-weight bearing in a posterior splint, transitioning to a walking boot once cleared to walk. - He should continue to use a knee scooter while non-weight bearing, and will be prescribed a walker for when he begins to bear weight. - Schedule follow-up one week after surgery. RTC in 2 weeks for pre-operative appointment. Orders: Orders AMB Podiatry Dressing 06/30/25 M25.571 - Pain in right ankle and joints of right foot, S82.401A - Unspecified fracture of shaft of right fibula, initial encounter for closed fracture, S93.401A - Sprain of unspecified ligament of right ankle, initial encounter, S99.911A - Unspecified injury of right ankle, initial encounter Referrals Podiatry Procedure Notification M25.571 - Pain in right ankle and joints of right foot, S82.401A - Unspecified fracture of shaft of right fibula, initial encounter for closed fracture, S93.401A - Sprain of unspecified ligament of right ankle, initial encounter, S99.911A - Unspecified injury of right ankle, initial encounter Coding Level of Care Code Est Pt Level 4 (29458) Diagnoses Right ankle sprain S93.401A Right fibular fracture S82.401A Right ankle injury S99.911A Right ankle pain M25.571 CPT Codes Podiatry Dressing - CPT: 16609 - Short leg splint ([id number]) Time Spent (min) 35
[2025-06-30 11:38] VITALS: BMI 44.3
--- OUTSIDE RECORDS SUMMARY | 2025-06-30 15:05 | XMS_ITS | Patient Health Record ---
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 Ketan Velazquez III Primary Care Provider Allergies No Known Allergies Reason For Referral [...] Problem Status W/U Status Risk Notes Problem 936264286 Mixed hyperlipidemia (E78.2) Active confirmed A fasting lipid profile will be part of a complete database I have ordered. Problem 92516892 Essential hypertension (I10) Active confirmed His blood pressure while taking 10 mg of lisinopril daily, was 134/90. He will return in 3 or 4 weeks to check it again on this dose. I recommended aggressive weight loss sodium restriction in the meantime. Problem [id number] Umbilical hernia without obstruction and without gangrene (K42.9) Active confirmed The umbilical hernia is very small and he is asymptomatic. It does not need to be repaired, but he would like to have it fixed. I have referred him for an opinion. Problem 263772430 Rash (R21) Active confirmed H e will use ketoconazole on the rash, 3 times a day for several weeks. He will call me after 21 days if the rash has not improved. Problem 592578890 Morbid obesity (E66.01) Active confirmed His weight is unchanged. He continues to be uncertain if he wants a referral to the weight loss clinic. We reviewed his weight loss strategy. We formulated a plan to lose weight at a rate of one half a pound per week through a diet low in calories, fat, and sodium. Problem 4761333 Diminished libid o (R68.82) Active confirmed His testosterone level is in the normal range. The decreased libido has improved, but he'll ask self-confidcatrachita e. He was given a prescription for tadalafil to help him regain his consonance in his ability to have erection. He will take the medication one hour before intercourse. He will report on his progress in this matter. Problem 02936077 Closed fracture of left upper extremity, sequela (S42.302S) Active confirmed Plan Of Treatment No Information Insurance Providers Payer Name Payer Address Payer Phone Subscriber Number Group Number Insured Name Patient Relationship to Insured Coverage Start Date Coverage End Date [facility] [address] [place], [place] [id number] [phone] [id number] , [place] Self - patient is the insured Medical [...] 2022 Surgical History Surgery Date(Month/Year) Vasectomy, [facility], Dr. Marimar escobar losing 2003 fracture of left upper and lower arm dental extractions Hernia surgery Dr. Gimenez 04/19/2022
== END 2025-06-30 12:06 | disposition home or self-care (01) ==
LOC: HO.HPODS 11:08
PROVIDERS: Visit Provider Student in an Organized Health Care Education/Training Program
DX: M19.071 Primary osteoarthritis, right ankle and foot (principal); M19.072 Primary osteoarthritis, left ankle and foot; M20.21 Hallux rigidus, right foot; M20.22 Hallux rigidus, left foot
CPT/HCPCS: 20605; 29515; 99213

== ENCOUNTER → 2025-06-30 11:08 | Outpatient (BNVA) | payer OTHER, SELFPAY | PROVIDERS: Visit Provider Student in an Organized Health Care Education/Training Program | DX: S93.401A Sprain of unspecified ligament of right ankle, initial encounter (principal); S82.401A Unspecified fracture of shaft of right fibula, initial encounter for closed fracture; W18.30XA Fall on same level, unspecified, initial encounter; Y93.9 Activity, unspecified; Y92.9 Unspecified place or not applicable; Y99.0 Civilian activity done for income or pay | CPT/HCPCS: 20605; 29515; 99212; J0665; J1100; J3301 ==